=== PATIENT | female | born 1955 | race Caucasian/White ===

== ENCOUNTER → 2021-10-25 | Outpatient (CLI) | payer MEDICARE ==
[~2021-10-25] MED LIST: ASPIRIN EC81 MG PO; ATORVASTATIN CA20 MG PO; LISINOPRIL-HCT1 EAC2 PO; PEPCID20 MG PO; POTASSIUM CHLO10 ME1 PO; PROTONIX 40 MG40 M1 PO
== END ==
LOC: HEART 5 12:35
DX: Z01.810 Encounter for preprocedural cardiovascular examination (principal); I07.1 Rheumatic tricuspid insufficiency
CPT/HCPCS: 93306